=== PATIENT | male | born 1960 | race Two or more races ===

== ENCOUNTER 2017-03-22 13:26 | Emergency (ER) | payer MEDICARE, MEDICAID ==
[~2017-03-22] VITALS: Ht 165.1 cm; Wt 77.1 kg
[~2017-03-22 13:26] MED LIST: ASPIR 8181 MG GT; ATORVASTATIN CA40 MG GT; BACTRIM DS TAB1 EAC1 ORAL; CEFEPIME-D1 GM/50 ML IVPB; CIPROFLOXACIN500 M2 ORAL; CITALOPRAM10 MG/5 M1 GT; CLOPIDOGREL75 MG GT; DUONEB 0.5-3(2.53 ML HHN; FLAGYL500 MG GT; HEPARIN1000 UNIT/ INJ; IMODIUM2 MG GT; INSULIN ASPART; LOPERAMIDE2 MG PO; MULTI-DELYN237 ML GT; PANTOPRAZOLE SO40 MG IV; PANTOPRAZOLE SO40 MG ORAL; ROCEPHIN 11 GM/50 ML IVPB; TRICOR145 MG GT; TYLENOL650 MG/20. ORAL; VIBRAMYCIN100 MG GT; VITAMIN C500 M1 GT; ZINC SULFATE220 M1 GT
[2017-03-22 14:00] VITALS: BP 152/95
[2017-03-22 14:22] VITALS: BP 152/95
--- NOTE | 2017-03-22 18:19 | Emergency Room Report ---
History of Present Illness General Chief Complaint: Hypertension Source: Family Member, Significant Other Present Illness HPI The patient is a 57-year-old male with a history of hypertension, CVA, COPD, among others presenting for hypertension. The states that the blood pressure at home was 150s/90s and the enginehouse brakeman became concerned and told him to go to the emergency department. The patient has confirmed hypertension and is taking Metoprolol. The dosage was recently increased to 100 mg and he has been taking it as directed by his primary doctor. The patient has difficulty with speaking which is normal for him since the stroke. The states that he has been acting normally with no changes. He denies any pain or other symptoms. He denies symptoms including chest pain, shortness of breath, numbness tingling , palpitations Allergies: Coded Allergies: No Known Allergies (Unverified , 12/16/15) Patient History Past Medical History: see triage record Pertinent Family History: none Reviewed Nursing Documentation: PMH: Agreed, PSxH: Agreed Nursing Documentation-PMH Hx Cardiac Problems: Yes Hx Hypertension: Yes Hx Pacemaker: No Hx Asthma: No Hx COPD: Yes Hx Diabetes: Yes Hx Cancer: No Hx Gastrointestinal Problems: Yes - G TUBE Hx Neurological Problems: Yes Hx Cerebrovascular Accident: Yes - right sided Review of Systems All Other Systems: negative except mentioned in HPI Physical Exam Vital Signs Date Time Temp Pulse Resp B/P Pulse Ox O2 Delivery O2 Flow Rate FiO2 03/22/17 13:58 98.2 64 20 152/95 95 Room Air Sp02 EP Interpretation: reviewed, normal General Appearance: no apparent distress, alert, GCS 15, non-toxic Head: normocephalic, atraumatic Eyes: bilateral eye normal inspection ENT: hearing grossly normal, normal pharynx, no angioedema, normal voice Respiratory: chest non-tender, lungs clear, normal breath sounds, speaking full sentences Cardiovascular #1: regular rate, rhythm, no edema Neurologic: alert, responsive Psychiatric: judgement/insight normal, memory normal, mood/affect normal, no suicidal/homicidal ideation Skin: normal color, no rash, warm/dry, well hydrated Medical Decision Making PA Attestation Dr. Joseph is my supervising physician. Patient management was discussed with my supervising physician Diagnostic Impression: Primary Impression: Hypertension Qualified Codes: I10 - Essential (primary) hypertension ER Course The patient is a 57 yo M with a Hx of HTN presenting for HTN DDx considered but not limited to: essential HTN, ht urgency/emergency, CVA, ACS , among others Blood pressure is mildly elevated to 150s/90s No need to add antihypertensive medications at this time. The will use a diary to record BP at home and FU with PMD. He will continue to take BP meds as directed until he sees PMD. ER precautions given Last Vital Signs Date Time Temp Pulse Resp B/P Pulse Ox O2 Delivery O2 Flow Rate FiO2 03/22/17 13:58 98.2 64 20 152/95 95 Room Air Status: improved Disposition: HOME, SELF-CARE Condition: Improved Referrals: NON PHYSICIAN (PCP) Patient Instructions: Hypertension Additional Instructions: I discussed my findings with the patient. All questions and concerns have been answered. Treatment and medication compliance have been addressed. I advised the patient that they need to follow up with PMD in 3-5 days. Return to ED if symptoms worsen, new symptoms arise, or if needed for any reason. Patient verbalized understanding of discharge instructions. SHARRI MENA Mar 22, 2017 18:19
== END 2017-03-22 14:22 | disposition home or self-care (01) ==
LOC: EMR 14:04
DX: I10 Essential (primary) hypertension (principal); E11.9 Type 2 diabetes mellitus without complications; J44.9 Chronic obstructive pulmonary disease, unspecified; Z86.73 Personal history of transient ischemic attack (TIA), and cerebral infarction without residual deficits
CPT/HCPCS: 99282

== ENCOUNTER 2018-10-05 11:26 | Emergency (ER) | payer MEDICARE, MEDICAID ==
[~2018-10-05] VITALS: Ht 167.6 cm; Wt 81.6 kg
--- NOTE | 2018-10-05 11:42 | NUR ---
ED Nurse Note: Pt came in from home on wheelchair due to coughing x 2 weeks, dry cough. Pt does not complains of any pain at this time. AOx4, VSS. Japanese speaking. Pt has hx of CVA, L side weakness. Will cont to monitor.
[2018-10-05 11:44] VITALS: BP 112/75
[2018-10-05] MEDS ORDERED: PROMETHAZINE-D118 ML ORAL (12:32)
[2018-10-05] MEDS ORDERED: AMOXICILLIN500 MG ORAL (12:32)
[2018-10-05 12:40] VITALS: BP 131/88
[2018-10-05 12:47] VITALS: BP 131/88
--- NOTE | 2018-10-05 12:47 | NUR ---
ED Nurse Note: Pt is clear to be discharged by ERMD. Discharge paper and prescription given, pt verbalized understanding of discharge instruction. AOx4, VSS. Wirstband removed. Pt left on wheelchair with spouse with all belongings.
--- NOTE | 2018-10-06 07:02 | Emergency Room Report ---
History of Present Illness General Chief Complaint: Upper Respiratory Illness Source: Patient, Caregiver Present Illness HPI 58-year-old male presents ED for evaluation. Patient brought in by design and sales consultant for cough and congestion 2 days. Cough is productive with yellowish phlegm. History of CVA with residual deficits. Has G-tube. Patient is afebrile. History of COPD. Not wheezing. No other aggravating relieving factors. Denies any other associated symptoms Allergies: Coded Allergies: No Known Allergies (Unverified , 12/16/15) Patient History Past Medical History: DM, HTN, COPD, CVA/TIA Past Surgical History: other - Gtube Pertinent Family History: none Social History: Denies: smoking, alcohol use, drug use Immunizations: UTD Reviewed Nursing Documentation: PMH: Agreed; PSxH: Agreed Nursing Documentation-PMH Past Medical History: No History, Except For Hx Cardiac Problems: Yes Hx Hypertension: Yes Hx Pacemaker: No Hx Asthma: No Hx COPD: Yes Hx Diabetes: Yes Hx Cancer: No Hx Gastrointestinal Problems: Yes - G TUBE Hx Neurological Problems: Yes Hx Cerebrovascular Accident: Yes - right sided Review of Systems All Other Systems: negative except mentioned in HPI Physical Exam Vital Signs Date Time Temp Pulse Resp B/P (MAP) Pulse Ox O2 Delivery O2 Flow Rate FiO2 10/05/18 11:38 98.8 77 18 121/68 99 Room Air Sp02 EP Interpretation: reviewed, normal General Appearance: no apparent distress, alert, GCS 15, non-toxic Head: normocephalic, atraumatic Eyes: bilateral eye normal inspection, bilateral eye PERRL ENT: hearing grossly normal, normal pharynx, no angioedema, normal voice Neck: full range of motion, supple/symm/no masses Respiratory: chest non-tender, normal breath sounds, crackles, speaking full sentences Cardiovascular #1: regular rate, rhythm, no edema Cardiovascular #2: 2+ carotid (R), 2+ carotid (L), 2+ radial (R), 2+ radial (L) , 2+ dorsalis pedis (R), 2+ dorsalis pedis (L) Gastrointestinal: normal bowel sounds, non tender, soft, non-distended, no guarding, no rebound, other - Gtube Rectal: deferred Genitourinary: normal inspection, no CVA tenderness Musculoskeletal: back normal Neurologic: alert, responsive Psychiatric: judgement/insight normal, memory normal, mood/affect normal, no suicidal/homicidal ideation Reflexes: 3+ bicep (R), 3+ bicep (L), 3+ tricep (R), 3+ tricep (L), 3+ knee (R) , 3+ knee (L) Skin: normal color, no rash, warm/dry, well hydrated Lymphatic: no adenopathy Medical Decision Making ER Course Hospital Course 58-year-old male presents ED complaining of cough and congestion Differential diagnoses include: URI, pharyngitis, otitis media, asthma Clinical course Patient placed on stretcher. After initial history, physical exam reveals a male in no acute distress. Bilateral TM unremarkable. No pharyngeal erythema. No tonsillar exudates. No lymphadenopathy. Patient has residual facial droop. Unchanged as per design and sales consultant. Some crackles noted on exam. No wheezing. Abdomen soft. Has G-tube Chest x-ray shows some increased haziness on the left compared to the right side. No definitive focal consolidation. However given age, comorbidities, history of COPD we'll discharge with antibiotics. discussed findings with patient design and sales consultant. Safe for discharge or close outpatient follow-up. It appears the patient does have PMD but we'll provide referrals Diagnosis - atypical pneumonia Stable and discharged home with Rx amoxicillin, promethazine. Instructed to followup with PMD. Return to ED if symptoms recur or worsen Chest X-Ray Diagnostic Results Chest X-Ray Diagnostic Results : Chest X-Ray Ordered: Yes # of Views/Limited/Complete: 1 View Indication: Other - cough EP Interpretation: Yes Interpretation: no pneumothorax, other - increased haziness on left Impression: Other - pneumonia Electronically Signed by: Electronically signed by Rex Joseph MD Last Vital Signs Date Time Temp Pulse Resp B/P (MAP) Pulse Ox O2 Delivery O2 Flow Rate FiO2 10/05/18 12:47 98.8 79 21 131/88 96 Room Air Status: improved Disposition: HOME, SELF-CARE Condition: Stable Scripts D-Methorphan Hb/Prometh Hcl* (PROMETHAZINE-DM SYRUP*) 118 Ml Syrup 5 ML ORAL Q6H PRN for For Cough, #118 ML 0 Refills Prov: Rex Joseph MD 10/05/18 Amoxicillin* (AMOXIL*) 500 Mg Capsule 500 MG ORAL THREE TIMES A DAY, #21 CAP Prov: Rex Joseph MD 10/05/18 Referrals: NOT CHOSEN IPA/,REFERRING (PCP) [facility] Rebeca Alvarado [facility] Patient Instructions: Community-Acquired Pneumonia, Adult, [id number] Rex Joseph MD Oct 06, 2018 07:02
--- NOTE | 2018-10-06 14:28 | Diagnostic Imaging Report ---
Indication: Cough Comparison: 03/19/2016 A single view chest radiograph was obtained. Findings: Lung volumes are low. No definite infiltrate identified. Aorta is ectatic. IMPRESSION: No acute disease
== END 2018-10-05 12:47 | disposition home or self-care (01) ==
LOC: EMR 11:40
DX: J18.9 Pneumonia, unspecified organism (principal); I10 Essential (primary) hypertension; E11.9 Type 2 diabetes mellitus without complications; Z86.73 Personal history of transient ischemic attack (TIA), and cerebral infarction without residual deficits; J44.9 Chronic obstructive pulmonary disease, unspecified
CPT/HCPCS: 71045; 99283